=== PATIENT | female | born 1945 | race Caucasian/White ===

== ENCOUNTER 2021-07-06 10:33 | Emergency (ER) | payer MEDICARE ==
[~2021-07-06] VITALS: Ht 152.4 cm; Wt 63.5 kg
[2021-07-06 12:23] LABS: HEMOGLOBIN 12.7 gm/dl (12.3-15.3); RED BLOOD COUNT 4.27 M/UL (4.00-5.10); WHITE BLOOD COUNT 5.2 K/UL (4.5-11.0)
[2021-07-06 12:55] LABS: BUN/CREATININE RATIO 19 (0-10)
[2021-07-06] MEDS ORDERED: KEPPRA500 MG PO (14:40)
== END 2021-07-06 15:00 | disposition home or self-care (01) ==
LOC: ER1 10:33
PROVIDERS: Emergency Medicine
DX: U07.1 COVID-19 (principal); G40.909 Epilepsy, unspecified, not intractable, without status epilepticus
CPT/HCPCS: 70450; 71045; 80053; 80307; 81001; 82550; 82553; 83605; 83874; 84484; 85025; 87040; 93005; 96374; 99285; J1953; U0002

== ENCOUNTER 2021-07-15 19:14 | Inpatient (IN) | payer MEDICARE ==
[~2021-07-15] VITALS: Ht 152.4 cm; Wt 51.7 kg
[~2021-07-15 19:14] MED LIST: AZITHROMYCIN250 MG PO; HYDROCODON-ACE1 EAC6 PO; KEPPRA500 MG PO; METHYLPREDNISOLO4 M1 PO
[2021-07-15 21:35] LABS: HEMOGLOBIN 13.8 gm/dl (12.3-15.3); RED BLOOD COUNT 4.98 M/UL (4.00-5.10); WHITE BLOOD COUNT 11.8 K/UL (4.5-11.0)
[2021-07-15 21:51] LABS: BUN/CREATININE RATIO 38 (0-10)
[2021-07-16] MEDS ORDERED: SYMBICORT 16010.2 GM INH (11:13)
[2021-07-16] MEDS ORDERED: CARISOPRODOL350 MG PO (11:14)
[2021-07-16] MEDS ORDERED: TIZANIDINE HCL2 MG PO (11:14)
[2021-07-16] MEDS ORDERED: VITAMIN B-121000 MCG PO (11:15)
[2021-07-16] MEDS ORDERED: GEMFIBROZIL600 MG PO (11:15)
[2021-07-17 04:00] LABS: BUN/CREATININE RATIO 44 (0-10)
[2021-07-17 12:18] LABS: HEMOGLOBIN 13.1 gm/dl (12.3-15.3); RED BLOOD COUNT 4.65 M/UL (4.00-5.10); WHITE BLOOD COUNT 11.9 K/UL (4.5-11.0)
[2021-07-18 02:12] LABS: HEMOGLOBIN 12.6 gm/dl (12.3-15.3); RED BLOOD COUNT 4.46 M/UL (4.00-5.10); WHITE BLOOD COUNT 9.2 K/UL (4.5-11.0)
[2021-07-18 02:30] LABS: BUN/CREATININE RATIO 50 (0-10)
--- NOTE | 2021-07-18 11:07 | NUR ---
PATIENT O2 SAT 85% ON ROOM AIR.
[2021-07-18] MEDS ORDERED: DECADRON6 MG PO (11:50)
[2021-07-18] MEDS ORDERED: LEVOFLOXACIN750 MG PO (11:50)
== END 2021-07-18 13:17 | disposition home or self-care (01) | DRG 177 ==
LOC: ER1 19:14 → CDU 23:51 → M/S 07-17 14:36
PROVIDERS: Internal Medicine; Physician Assistant Medical; ADMIT Internal Medicine
PROC: 3E0333Z Introduction of Anti-inflammatory into Peripheral Vein, Percutaneous Approach (ICD-10-PCS; principal; 2021-07-15)
PROC: XW033E5 Introduction of Remdesivir Anti-infective into Peripheral Vein, Percutaneous Approach, New Technology Group 5 (ICD-10-PCS; 2021-07-15)
PROC: 8E0ZXY6 Isolation (ICD-10-PCS; 2021-07-15)
DX: U07.1 COVID-19 (principal); J96.01 Acute respiratory failure with hypoxia; J12.82 Pneumonia due to coronavirus disease 2019; J15.9 Unspecified bacterial pneumonia; G40.909 Epilepsy, unspecified, not intractable, without status epilepticus; G89.29 Other chronic pain; F17.210 Nicotine dependence, cigarettes, uncomplicated
CPT/HCPCS: 36415; 36600; 71045; 80048; 80053; 82803; 83605; 83735; 83880; 85025; 94640; 94664; 94760; 99285; J0456; J0696; J1100; J1650; J7030; U0002